=== PATIENT | female | born 1970 | race Caucasian/White ===

== ENCOUNTER → 2024-01-31 | Outpatient (CLI) | payer OTHER ==
[2024-01-31 16:57] VITALS: BP 139/84; PULSE 104; RESP 16; TEMP 97.9
--- NOTE | 2024-01-31 17:20 | P.SLEEP ---
History of Present Illness H&P Date: 01/31/24 This is a 53-year-old female patient patient is coming in to establish care regarding obstructive sleep apnea. The patient was diagnosed having MARGOT more than 9 years ago through [facility]. Back then, the patient was told to have severe disease and the patient was given a CPAP machine. She is currently using a DreamStation CPAP unit which is adjusted at a pressure of 9 cm of water. Treatment remains successful. This machine was given to her on 04/19/2021. Based on a 30-day compliancy as recorded from her machine, the patient is extremely compliant and the patient utilizing the machine more than 4 hours 100% of the time. The patient has been averaging around 8.5 hours of CPAP use per night. Her AHI while on treatment is down to 0.4. No periodic breathing. She has an excellent mask fit and the patient is using the dreamware nasal pillows, small size. Her weight has remained stable over the years and the patient has a body mass index of 41.3. 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 She is able to function. No major hypersomnia or sleepiness during the day. She goes to bed at 9 PM and she wakes up 6 AM in the morning. No snoring while on CPAP therapy. Denies waking up choking or gasping for air. No angina. No palpitation. No heartburn. No restlessness in lower extremities. No substance abuse. No alcoholism. No smoking. Weight has remained stable. Review of Systems Constitutional: Reports daytime sleepiness Eyes: denies as per HPI, denies blurred vision, denies bulging eye, denies decreased vision, denies diplopia, denies discharge, denies dry eye, denies irritation, denies itching, denies pain, denies photophobia, denies loss of peripheral vision, denies loss of vision, denies tunnel vision/blind spots Ears: deny: decreased hearing, ear discharge, earache, tinnitus Ears, nose, mouth and throat: Reports as per HPI Breasts: absent: as per HPI, change in shape, gynecomastia, masses, nipple discharge, pain, skin changes, swelling Cardiovascular: Reports as per HPI Respiratory: Reports as per HPI Gastrointestinal: Reports as per HPI Genitourinary: Reports as per HPI Menstruation: Reports as per HPI Musculoskeletal: Reports as per HPI Musculoskeletal: absent: ankle pain, ankle stiffness, ankle swelling, as per HPI, elbow pain, elbow stiffness, elbow swelling, foot pain, foot stiffness, foot swelling, hand pain, hand stiffness, hand swelling, hip pain, hip stiffness, hip swelling, knee pain, knee stiffness, knee swelling, shoulder pain, shoulder stiffness, shoulder swelling, wrist pain, wrist stiffness, wrist swelling Integumentary: Reports as per HPI Neurological: Reports as per HPI Psychiatric: Reports as per HPI Endocrine: Reports as per HPI, Reports fatigue Hematologic/Lymphatic: Reports as per HPI Allergic/Immunologic: Reports as per HPI Past Medical History Past Medical History: Diabetes Mellitus, GERD/Reflux, Hypertension, Sleep Apnea/CPAP/BIPAP Additional Past Medical History / Comment(s): HX BLOOD PRESSURE FLUCTUATIONS. HAS INCISIONAL HERNIA. ASYSTOLE IN OR POST HERNIA REPAIR. History of Any Multi-Drug Resistant Organisms: None Reported Past Surgical History: Hernia Repair, Hysterectomy Past Anesthesia/Blood Transfusion Reactions: No Reported Reaction Additional Past Anesthesia/Blood Transfusion Reaction / Comment(s): CARDIAC ARREST 08/10/13 IN OR POST HERNIA REPAIR. Past Psychological History: No Psychological Hx Reported Smoking Status: Never smoker Past Alcohol Use History: Rare Past Drug Use History: None Reported - Past Family History Father Family Medical History: Diabetes Mellitus, Hyperlipidemia Mother Family Medical History: Coronary Artery Disease (CAD), Hyperlipidemia, Hypertension Additional Family Medical History / Comment(s): Cabg Sister(s) Family Medical History: CVA/TIA Medications and Allergies Home Medications Medication Instructions Recorded Confirmed Type Losartan [Cozaar] 50 mg PO DAILY 11/03/15 01/31/24 History metFORMIN HCL [metFORMIN HCL ER] 1,000 mg PO DAILY 11/03/15 01/31/24 History raNITIdine HCL [Zantac] 1 tab PO DAILY 11/03/15 11/03/15 History Atorvastatin [Lipitor] 80 mg PO DAILY 01/31/24 01/31/24 History Empagliflozin [Jardiance] 25 mg PO DAILY 01/31/24 01/31/24 History Pantoprazole [Protonix] 40 mg PO DAILY 01/31/24 01/31/24 History Allergies Allergy/AdvReac Type Severity Reaction Status Date / Time codeine Allergy Severe LOC, Verified 11/03/15 10:12 POSSIBLE SEIZURE ACTIVITY Physical Exam Vitals: Vital Signs Temp Pulse Resp BP Pulse Ox 01/31/24 16:56 97.9 F 104 H 16 139/84 96 Intake and Output 01/31/24 01/31/24 01/31/24 06:59 14:59 22:59 Other: Weight 121.563 kg The patient appeared well nourished and normally developed. Vital signs as documented. Head exam is unremarkable. No scleral icterus or corneal arcus noted. Neck is without jugular venous distension, thyromegaly, or carotid bruits. Carotid upstrokes are brisk bilaterally. Lungs are clear to auscultation and percussion. Cardiac exam reveals the PMI to be normally sized and situated. Rhythm is regular. First and second heart sounds normal. No murmurs, rubs or gallops. Abdominal exam reveals normal bowel sounds, no masses, no organomegaly and no aortic enlargement. Extremities are nonedematous and both femoral and pedal pulses are normal. Examination of the skin revealed no evidence of significant rashes, suspicious appearing nevi or other concerning lesions. Neurologically, the patient is awake and alert and the patient does not have any focal neurological deficit. Cranial nerves are essentially intact. Assessment and Plan Plan: Severe obstructive sleep apnea, original diagnosis was established through [facility]. Documentation of her sleep study is not available. This was a home sleep study that was done more than 9 years ago and the patient is currently on a CPAP therapy at a pressure of 9 cm of water. She has a DreamStation and she has also DreamWear nasal pillows. Her treatment is extremely successful for now. Compliance check was done. Obesity with a BMI of 41.3 Chronic hypersomnia, improved with CPAP therapy Hypertension Hyperlipidemia Plan Compliance check was done. The patient's machine is functional. No need for any adjustments and the patient will be kept on the pressure of 9 cm of water We will offer a climate line for her DreamStation CPAP unit Will refill all of her supplies including the DreamWear nasal pillows, small size Encourage weight loss Maintain good sleep hygiene measures Treatment is successful See me back in 1 year Sleep Note - Sleep Data ESS Total: 9 - Sleep Note Sleep Note: Temperature: 97.9 F Pulse Rate: 104 Respiratory Rate: 16 Blood Pressure: 139/84 SpO2: 96 Height: 5 ft 7.5 in Weight: 121.563 kg BMI: Neck Circumference: 15.5
== END ==
LOC: 3 N SLEEP 15:20
PROVIDERS: ATTEND Internal Medicine Critical Care Medicine
DX: G47.33 Obstructive sleep apnea (adult) (pediatric) (principal); E66.9 Obesity, unspecified; Z68.41 Body mass index [BMI] 40.0-44.9, adult; I10 Essential (primary) hypertension; E78.5 Hyperlipidemia, unspecified; Z88.5 Allergy status to narcotic agent; Z79.899 Other long term (current) drug therapy
CPT/HCPCS: 99202